=== PATIENT | male | born 1965 | race Caucasian/White ===

== ENCOUNTER 2020-06-19 20:25 | Inpatient (IN) | payer OTHER ==
[~2020-06-19] VITALS: Ht 182.9 cm; Wt 92.1 kg
[~2020-06-19 20:25] MED LIST: FLUC200T PO; LAMO100T8 PO; LAMO50TA3 PO; LEVE750T41 PO; METO50TA6 PO
--- NOTE | 2020-06-19 20:42 | PHYS DOC ---
Past Medical History Past Medical History: Hypertension, Seizure Past Surgical History: No Surgical History Smoking Status: Never Smoker Alcohol Use: None General Adult HPI: HPI: Patient is a 54 year old male who presents with by EMS from [facility] where he is inpatient for suicidal ideation. Patient currently denies suicidal ideation. Patient had a witnessed seizure while he was sitting in a chair, that lasted approximately a minute. He is supposed be taking metoprolol and Lamict al. Patient is postictal but he is sleepy, easily arousable and oriented x4. Patient denies headache, dizziness, vision changes, numbness or tingling, focal weakness, chest pain, shortness of breath, abdominal pain, nausea, vomiting, diarrhea, fever. He has a history of hypertension and seizures per the patient. And upon arrival is in A. fib with RVR and this is new for him as the patient denies any past heart history or A. fib. He denies being on any blood thinners. Review of Systems: Review of Systems: Constitutional: Denies fever or chills. [] Eyes: Denies change in visual acuity. [] HENT: Denies nasal congestion or sore throat. [] Respiratory: Denies cough or shortness of breath. [] Cardiovascular: Denies chest pain or edema. Irregular rhythm.[] GI: Denies abdominal pain, nausea, vomiting, bloody stools or diarrhea. [] : Denies dysuria. [] Musculoskeletal: Denies back pain or joint pain. [] Integument: Denies rash. [] Neurologic: Denies headache, focal weakness or sensory changes. Seizure[] Endocrine: Denies polyuria or polydipsia. [] Lymphatic: Denies swollen glands. [] Psychiatric: Denies depression or anxiety. [] Heart Score: Risk Factors: Risk Factors: DM, Current or recent (<one month) smoker, HTN, HLP, family history of CAD, obesity. Risk Scores: Score 0 - 3: 2.5% MACE over next 6 weeks - Discharge Home Score 4 - 6: 20.3% MACE over next 6 weeks - Admit for Clinical Observation Score 7 - 10: 72.7% MACE over next 6 weeks - Early Invasive Strategies Allergies: Allergies: Allergies Coded Allergies Type Severity Reaction Last Updated Verified Penicillins Allergy Unknown Hives 10/20/19 Yes Physical Exam: PE: Constitutional: Well developed, well nourished, no acute distress, non-toxic appearance. [] HENT: Normocephalic, atraumatic, bilateral external ears normal, oropharynx moist, no oral exudates, nose normal. [] Eyes: PERRLA, EOMI, conjunctiva normal, no discharge. [] Neck: Normal range of motion, no tenderness, supple, no stridor. [] Cardiovascular:Heart rate irregular afib with rvr rhythm, no murmur [] Lungs & Thorax: Bilateral breath sounds clear to auscultation [] Abdomen: Bowel sounds normal, soft, no tenderness, no masses, no pulsatile masses. [] Skin: Warm, dry, no erythema, no rash. [] Back: No tenderness, no CVA tenderness. [] Extremities: No tenderness, no cyanosis, no clubbing, ROM intact, no edema. [] Neurologic: Alert and oriented X 3, normal motor function, normal sensory function, no focal deficits noted. [] Psychologic: Affect normal, judgement normal, mood normal. Sleepy, postictal [] EKG: EK and read by Dr Liu as Afib with RVR[] Radiology/Procedures: Radiology/Procedures: [] Impression: [facility] [address] [facility] [place] [place] [id number] IMAGING REPORT Signed PATIENT: SAMY VALENTE ACCOUNT: [id number] : 1965 LOCATION: ER AGE: 54 SEX: M EXAM STATUS: PRE ER ORD. PHYSICIAN: RIRI POWERS APRN REASON: seizure ER#[id number] PROCEDURE: PORTABLE CHEST 1V Exam: Chest one view INDICATION: Seizure TECHNIQUE: Frontal view of the chest Comparisons: None FINDINGS: The cardiomediastinal silhouette and pulmonary vessels are within normal limits. Patchy airspace disease at the left lung base. No pleural effusion. IMPRESSION: Patchy airspace disease at the left lung base, may be atelectasis and/or developing consolidative process. Electronically signed by: Kevin Araiza MD (06/19/2020 9:15 PM) [id number] DICTATED and SIGNED BY: KEVIN ARAIZA MD DATE: 06/19/202114 Course & Med Decision Making: Course & Med Decision Making Pertinent Labs and Imaging studies reviewed. (See chart for details) See HPI. Speaks in full complete sentences. Lungs are clear to auscultation all lobes. No extremity edema. Skin pink warm and dry. Cardizem 25 mg IV push and Cardizem drip is ordered. Patient states last seizure was 1 month ago. Lidia rojas usually goes to the ID for medical care. Patient admitted tot [facility] by Dr Stiles. Heart rate is now running 86-96. Patient remained stable. His magnesium is 2.6. Patient's creatinine is bumped at 1.7. I have spoken to Dr Liu concerning this patient, findings and care plan. When looking back in the patients chart he was here for Afib RVR in September 2019. Patient is a poor historian. 5: Prior to the patient going upstairs patient began to have a seizure that last approximately 1 minute. Patient is given 1mg Ativan and 1G Keppra. [] Moiz Disclaimer: Moiz Disclaimer: This electronic medical record was generated, in whole or in part, using a voice recognition dictation system. Departure Departure Impression: Primary Impression: Atrial fibrillation with rapid ventricular response Additional Impression: Seizure Disposition: ADMITTED INPATIENT Admitting Physician: YOLA Condition: STABLE Referrals: UNKNOWN PCP NAME (PCP) Justicifation of Admission Dx: Justifications for Admission: Justification of Admission Dx: Yes (afib rvr) RIRI POWERS APRN Jun 19, 2020 20:42
[2020-06-19 20:43] LABS: BASO # 0.1 x10^3/uL (0.0-0.2); BASO % 1 % (0-3); EOS # 0.1 x10^3/uL (0.0-0.7); EOS % 2 % (0-3); HEMATOCRIT 46.3 % (39.0-53.0); HEMOGLOBIN 15.7 g/dL (13.0-17.5); LYMPH # 3.4 x10^3/uL (1.0-4.8); LYMPH % 42 % (24-48); MEAN CORPUSCULAR HEMOGLOBIN 30 pg (25-35); MEAN CORPUSCULAR HGB CONC 34 g/dL (31-37); MEAN CORPUSCULAR VOLUME 88 fL (79-100); MONO # 0.9 x10^3/uL (0.0-1.1); MONO % 11 % (0-9); NEUT # 3.7 x10^3/uL (1.8-7.7); NEUT % 45 % (31-73); PLATELET COUNT 219 x10^3/uL (140-400); RED BLOOD COUNT 5.24 x10^6/uL (4.30-5.70); RED CELL DISTRIBUTION WIDTH 13.7 % (11.5-14.5); WHITE BLOOD COUNT 8.1 x10^3/uL (4.0-11.0)
[2020-06-19] MEDS ORDERED: dilTIAZem IV PUSH 25 MG/5 ML VIAL IVP ONE (20:45)
[2020-06-19] MEDS ORDERED: DILTIAZEM HCL 125 MG in IV NORMAL SALINE 100ML 100 ML IV ONE (20:45)
[2020-06-19 20:46] LABS: BILIRUBIN,URINE NEGATIVE (NEG); CLARITY,URINE CLEAR; COLOR,URINE YELLOW; NITRITE,URINE NEGATIVE (NEG); PROTEIN,URINE 100 mg/dL (NEG-TRACE); UROBILINOGEN,URINE 0.2 mg/dL (0.2 mg/dL)
[2020-06-19 20:50] LABS: AMORPHOUS SEDIMENT,UR PRESENT /HPF; BACTERIA,URINE 0 /HPF (0-FEW); HYALINE CASTS, URINE FEW /HPF
[2020-06-19 20:52] LABS: PROTHROMBIN TIME PATIENT 12.7 SEC (11.7-14.0)
[2020-06-19 20:52] LABS: BARBITURATES NEG (NEG); BENZODIAZEPINES NEG (NEG); CANNABINOIDS NEG (NEG); COCAINE NEG (NEG); METHADONE NEG (NEG); OPIATES NEG (NEG); PHENCYCLIDINE NEG (NEG)
[2020-06-19 20:55] LABS: CALCIUM 9.2 mg/dL (8.5-10.1); CREATININE 1.7 mg/dL (0.7-1.3); GFR 42.4; POTASSIUM 3.6 mmol/L (3.5-5.1)
[2020-06-19 20:58] LABS: AMPHETAMINE/METHAMPHETAMINE NEG (NEG)
[2020-06-19 20:58] LABS: ALBUMIN 4.2 g/dL (3.4-5.0); ALBUMIN/GLOBULIN RATIO 1.1 (1.0-1.7); MAGNESIUM 2.6 mg/dL (1.8-2.4); TOTAL BILIRUBIN 0.4 mg/dL (0.2-1.0)
[2020-06-19] MEDS ORDERED: ASPIRIN 325 MG TABLET PO ONE (21:00)
--- NOTE | 2020-06-19 21:18 | RAD ---
Exam: Chest one view INDICATION: Seizure TECHNIQUE: Frontal view of the chest Comparisons: None FINDINGS: The cardiomediastinal silhouette and pulmonary vessels are within normal limits. Patchy airspace disease at the left lung base. No pleural effusion. IMPRESSION: Patchy airspace disease at the left lung base, may be atelectasis and/or developing consolidative process. Electronically signed by: Kevin Gunderson MD (06/19/2020 9:15 PM) [id number]
[2020-06-19] MEDS ORDERED: AZITHRMYCN 500MG IVPB FOR OMNI 250 ML IV ONE (22:00)
[2020-06-19] MEDS ORDERED: cefTRIAXone IV Push 1 GM VIAL. IVP ONE (22:00)
[2020-06-19] MEDS ORDERED: levETIRAcetam 1,000 MG in IV DEXTROSE 5% 100ML 100 ML IV ONE (23:00)
[2020-06-19 23:42] VITALS: BP 123/67
[2020-06-20] VITALS (9 sets, daily range): BP systolic 112–147; BP diastolic 64–90
[2020-06-20] MEDS ORDERED: DOCUSATE SODIUM 100 MG CAPSULE. PO PRN (08:30)
[2020-06-20] MEDS ORDERED: ALBUTEROL SULFATE 2.5 MG/3 ML NEBU. NEB PRN (08:30)
[2020-06-20] MEDS ORDERED: ONDANSETRON PF 4 MG/2 ML VIAL. IV PRN (08:30)
[2020-06-20] MEDS ORDERED: ACETAMINOPHEN 325 MG TABLET. PO PRN (08:30)
[2020-06-20] MEDS ORDERED: ACETAMINOPHEN 650 MG SUPP.RECT. PR PRN (08:30)
[2020-06-20] MEDS ORDERED: LORazepam 0.5 MG TABLET PO PRN (08:30)
[2020-06-20] MEDS ORDERED: guaiFENesin ORAL 200 MG/10 ML LIQUID. PO PRN (08:30)
[2020-06-20] MEDS ORDERED: ZOLPIDEM 5 MG TABLET. PO PRN (08:30)
[2020-06-20] MEDS: AZITHROMYCIN 250 MG TABLET. PO SCH (09:13)
[2020-06-20] MEDS: ENOXAPARIN 40 MG/0.4 ML SYRINGE. SQ SCH (09:14)
--- NOTE | 2020-06-20 09:24 | RAD ---
EXAM: PA and Lateral Views of the Chest DATE: 06/20/2020 8:25 AM INDICATION: pneumonia follow up COMPARISON: 06/19/2020 FINDINGS: The heart is not enlarged. Mediastinal and hilar contours are normal. Improved aeration lungs bilaterally without significant associated consolidation. No pleural effusion or pneumothorax. IMPRESSION: Improved aeration lungs bilaterally without significant associated consolidation Electronically signed by: Gary Stallings MD (06/20/2020 9:21 AM) [id number]
--- NOTE | 2020-06-20 10:11 | PDOC1 ---
History and Physical Date of Admission Date of Admission 06/20/2020 Identification/Chief Complaint Chief Complaint My heart is beating fast Source Source: Chart review, Patient History of Present Illness History of Present Illness Patient is a 54-year-old gentleman with past medical history of seizure disorder and essential hypertension who looks certainly older than the stated age who was in the usual state of health until he was brought by emergency medical services after suffering for a witnessed seizure while he was sitting in a chair. Patient apparently does not remember the incident reports of 1 minute approxim ately of postictal. Is recorded. Patient was found to have atrial fibrillation with rapid ventricular response upon evaluation in the emergency department reason why we were asked to admit the patient. The patient denied any chest pain no palpitations at the time of the event no aura type of symptoms no flashing lights or weird smells were reported prior to the event. He did not have loss of sphincter control. Patient was apparently at [facility] for suicidal ideation which at the moment he does not endorse history of. At the time of my visit the patient denies any headache no generalized malaise no history of cold-like symptoms and he adamantly says that he does not have COVID-19. He denies any exposure to cope with 19 patients denies fever cough sputum production no pleurisy was reported no nausea vomiting or diarrhea no abdominal pain was reported. Patient denies urinary symptoms. Plan of care has been explained detail and all of his concerns were addressed to the best of my abilities Past Medical History Cardiovascular: AFIB, HTN CENTRAL NERVOUS SYSTEM: Seizure Past Surgical History Past Surgical History: Other Family History Family History: No Significant, Other Social History Smoke: No ALCOHOL: none Drugs: None Current Problem List Problem List Problems Medical Problems: (1) Atrial fibrillation with rapid ventricular response Status: Acute (2) Seizure Status: Acute Current Medications Current Medications Current Medications Medications (Trade) Dose Ordered Sig/Indigo Start Time Stop Time Status Last Admin Dose Admin Acetaminophen (Tylenol Supp) 650 mg PRN Q4HRS PRN 06/20/20 08:30 Acetaminophen (Tylenol) 650 mg PRN Q4HRS PRN 06/20/20 08:30 Albuterol Sulfate (Ventolin Neb Soln) 2.5 mg PRN Q4HRS PRN 06/20/20 08:30 Aspirin (Jeff Aspirin) 325 mg 1X ONCE 06/19/20 21:00 06/19/20 21:01 DC 06/19/20 20:50 325 MG Azithromycin (Zithromax) 500 mg DAILY 06/20/20 09:00 06/21/20 09:01 06/20/20 09:13 500 MG Ceftriaxone Sodium (Rocephin) 1 gm Q24H 06/20/20 22:00 Diltiazem HCl (Cardizem 24hr Cd) 240 mg DAILY 06/21/20 09:00 UNV Diltiazem HCl (Cardizem Iv Push) 25 mg 1X ONCE 06/19/20 20:45 06/19/20 20:46 DC 06/19/20 20:51 25 MG Diltiazem HCl 125 mg/Sodium Chloride 125 ml @ 5 mls/hr 1X ONCE 06/19/20 20:45 06/20/20 21:44 06/19/20 20:52 5 MLS/HR Docusate Sodium (Colace) 100 mg PRN BID PRN 06/20/20 08:30 Enoxaparin Sodium (Lovenox 40mg Syringe) 40 mg Q24H 06/20/20 09:00 06/20/20 09:14 40 MG Guaifenesin (Robitussin) 200 mg PRN Q4HRS PRN 06/20/20 08:30 Levetiracetam 1000 mg/Dextrose 110 ml @ 440 mls/hr 1X ONCE 06/19/20 23:00 06/19/20 23:14 DC 06/19/20 23:33 440 MLS/HR Lorazepam (Ativan Inj) 1 mg PRN Q4HRS PRN 06/19/20 22:45 Lorazepam (Ativan) 0.5 mg PRN Q4HRS PRN 06/20/20 08:30 Ondansetron HCl (Zofran) 4 mg PRN Q4HRS PRN 06/20/20 08:30 Zolpidem Tartrate (Ambien) 5 mg PRN QHS PRN 06/20/20 08:30 Allergies Allergies Allergies Coded Allergies Type Severity Reaction Last Updated Verified Penicillins Allergy Intermediate Hives 06/19/20 Yes ROS Review of System CONSTITUTIONAL: No fever or chills EYES: No recent changes SKIN: No rash or itching CARDIOVASCULAR: No chest pain, syncope, palpitations, or edema RESPIRATORY: No SOB or cough GASTROINTESTINAL: No nausea, vomiting or abdominal pain NEUROLOGICAL: No headaches or weakness ENDOCRINE: No cold or heat intolerance GENITOURINARY: No urgency or frequency of urination MUSCULOSKELETAL: No back pain or joint pain LYMPHATICS: No enlarged lymph nodes PSYCHIATRIC: No anxiety or depression Physical Exam Physical Exam GEN.: No apparent distress. Alert and oriented. HEENT: Head is normocephalic, atraumatic NECK: Supple. LUNGS: Clear to auscultation. HEART: Irregular heart rate and rhythm, S1, S2 present. Peripheral pulses intact ABDOMEN: Soft, nontender. Positive bowel sounds. EXTREMITIES: Without any cyanosis. NEUROLOGIC: Normal speech, normal tone PSYCHIATRIC: Normal affect, normal mood. SKIN: No ulcerations Vitals Vitals Vital Signs Date Time Temp Pulse Resp B/P (MAP) Pulse Ox O2 Delivery O2 Flow Rate FiO2 06/20/20 07:00 98.7 99 22 132/64 (86) 97 Room Air 98.7 Labs Labs Laboratory Tests Test 06/19/20 20:32 06/19/20 20:35 06/20/20 02:00 White Blood Count 8.1 x10^3/uL (4.0-11.0) Red Blood Count 5.24 x10^6/uL (4.30-5.70) Hemoglobin 15.7 g/dL (13.0-17.5) Hematocrit 46.3 % (39.0-53.0) Mean Corpuscular Volume 88 fL (79-100) Mean Corpuscular Hemoglobin 30 pg (25-35) Mean Corpuscular Hemoglobin Concent 34 g/dL (31-37) Red Cell Distribution Width 13.7 % (11.5-14.5) Platelet Count 219 x10^3/uL (140-400) Neutrophils (%) (Auto) 45 % (31-73) Lymphocytes (%) (Auto) 42 % (24-48) Monocytes (%) (Auto) 11 % (0-9) Eosinophils (%) (Auto) 2 % (0-3) Basophils (%) (Auto) 1 % (0-3) Neutrophils # (Auto) 3.7 x10^3/uL (1.8-7.7) Lymphocytes # (Auto) 3.4 x10^3/uL (1.0-4.8) Monocytes # (Auto) 0.9 x10^3/uL (0.0-1.1) Eosinophils # (Auto) 0.1 x10^3/uL (0.0-0.7) Basophils # (Auto) 0.1 x10^3/uL (0.0-0.2) Prothrombin Time 12.7 SEC (11.7-14.0) Prothromb Time International Ratio 1.0 (0.8-1.1) Sodium Level 138 mmol/L (136-145) Potassium Level 3.6 mmol/L (3.5-5.1) Chloride Level 101 mmol/L (98-107) Carbon Dioxide Level 16 mmol/L (21-32) Anion Gap 21 (6-14) Blood Urea Nitrogen 16 mg/dL (8-26) Creatinine 1.7 mg/dL (0.7-1.3) Estimated GFR (Cockcroft-Gault) 42.4 BUN/Creatinine Ratio 9 (6-20) Glucose Level 171 mg/dL (70-99) Calcium Level 9.2 mg/dL (8.5-10.1) Magnesium Level 2.6 mg/dL (1.8-2.4) Total Bilirubin 0.4 mg/dL (0.2-1.0) Aspartate Amino Transf (AST/SGOT) 16 U/L (15-37) Alanine Aminotransferase (ALT/SGPT) 27 U/L (16-63) Alkaline Phosphatase 65 U/L (46-116) Troponin I Quantitative < 0.017 ng/mL (0.000-0.055) 0.161 ng/mL (0.000-0.055) WR-Qul-I-Type Natriuretic Peptide 90 pg/mL (0-124) Total Protein 8.0 g/dL (6.4-8.2) Albumin 4.2 g/dL (3.4-5.0) Albumin/Globulin Ratio 1.1 (1.0-1.7) Lipase 92 U/L (73-393) Urine Collection Type Unknown Urine Color Yellow Urine Clarity Clear Urine pH 5.0 (<5.0-8.0) Urine Specific Brandt 1.015 (1.000-1.030) Urine Protein 100 mg/dL (NEG-TRACE) Urine Glucose (UA) Negative mg/dL (NEG) Urine Ketones (Stick) Negative mg/dL (NEG) Urine Blood Small (NEG) Urine Nitrite Negative (NEG) Urine Bilirubin Negative (NEG) Urine Urobilinogen Dipstick 0.2 mg/dL (0.2 mg/dL) Urine Leukocyte Esterase Negative (NEG) Urine RBC 1-2 /HPF (0-2) Urine WBC 1-4 /HPF (0-4) Urine Amorphous Sediment Present /HPF Urine Bacteria 0 /HPF (0-FEW) Urine Hyaline Casts Few /HPF Urine Mucus Mod /LPF Urine Opiates Screen Neg (NEG) Urine Methadone Screen Neg (NEG) Urine Barbiturates Neg (NEG) Urine Phencyclidine Screen Neg (NEG) Urine Amphetamine/Methamphetamine Neg (NEG) Urine Benzodiazepines Screen Neg (NEG) Urine Cocaine Screen Neg (NEG) Urine Cannabinoids Screen Neg (NEG) Urine Ethyl Alcohol Neg (NEG) Laboratory Tests Test 06/19/20 20:32 06/19/20 20:35 06/20/20 02:00 White Blood Count 8.1 x10^3/uL (4.0-11.0) Red Blood Count 5.24 x10^6/uL (4.30-5.70) Hemoglobin 15.7 g/dL (13.0-17.5) Hematocrit 46.3 % (39.0-53.0) Mean Corpuscular Volume 88 fL (79-100) Mean Corpuscular Hemoglobin 30 pg (25-35) Mean Corpuscular Hemoglobin Concent 34 g/dL (31-37) Red Cell Distribution Width 13.7 % (11.5-14.5) Platelet Count 219 x10^3/uL (140-400) Neutrophils (%) (Auto) 45 % (31-73) Lymphocytes (%) (Auto) 42 % (24-48) Monocytes (%) (Auto) 11 % (0-9) Eosinophils (%) (Auto) 2 % (0-3) Basophils (%) (Auto) 1 % (0-3) Neutrophils # (Auto) 3.7 x10^3/uL (1.8-7.7) Lymphocytes # (Auto) 3.4 x10^3/uL (1.0-4.8) Monocytes # (Auto) 0.9 x10^3/uL (0.0-1.1) Eosinophils # (Auto) 0.1 x10^3/uL (0.0-0.7) Basophils # (Auto) 0.1 x10^3/uL (0.0-0.2) Prothrombin Time 12.7 SEC (11.7-14.0) Prothromb Time International Ratio 1.0 (0.8-1.1) Sodium Level 138 mmol/L (136-145) Potassium Level 3.6 mmol/L (3.5-5.1) Chloride Level 101 mmol/L (98-107) Carbon Dioxide Level 16 mmol/L (21-32) Anion Gap 21 (6-14) Blood Urea Nitrogen 16 mg/dL (8-26) Creatinine 1.7 mg/dL (0.7-1.3) Estimated GFR (Cockcroft-Gault) 42.4 BUN/Creatinine Ratio 9 (6-20) Glucose Level 171 mg/dL (70-99) Calcium Level 9.2 mg/dL (8.5-10.1) Magnesium Level 2.6 mg/dL (1.8-2.4) Total Bilirubin 0.4 mg/dL (0.2-1.0) Aspartate Amino Transf (AST/SGOT) 16 U/L (15-37) Alanine Aminotransferase (ALT/SGPT) 27 U/L (16-63) Alkaline Phosphatase 65 U/L (46-116) Troponin I Quantitative < 0.017 ng/mL (0.000-0.055) 0.161 ng/mL (0.000-0.055) CA-Tdb-Z-Type Natriuretic Peptide 90 pg/mL (0-124) Total Protein 8.0 g/dL (6.4-8.2) Albumin 4.2 g/dL (3.4-5.0) Albumin/Globulin Ratio 1.1 (1.0-1.7) Lipase 92 U/L (73-393) Urine Collection Type Unknown Urine Color Yellow Urine Clarity Clear Urine pH 5.0 (<5.0-8.0) Urine Specific Brandt 1.015 (1.000-1.030) Urine Protein 100 mg/dL (NEG-TRACE) Urine Glucose (UA) Negative mg/dL (NEG) Urine Ketones (Stick) Negative mg/dL (NEG) Urine Blood Small (NEG) Urine Nitrite Negative (NEG) Urine Bilirubin Negative (NEG) Urine Urobilinogen Dipstick 0.2 mg/dL (0.2 mg/dL) Urine Leukocyte Esterase Negative (NEG) Urine RBC 1-2 /HPF (0-2) Urine WBC 1-4 /HPF (0-4) Urine Amorphous Sediment Present /HPF Urine Bacteria 0 /HPF (0-FEW) Urine Hyaline Casts Few /HPF Urine Mucus Mod /LPF Urine Opiates Screen Neg (NEG) Urine Methadone Screen Neg (NEG) Urine Barbiturates Neg (NEG) Urine Phencyclidine Screen Neg (NEG) Urine Amphetamine/Methamphetamine Neg (NEG) Urine Benzodiazepines Screen Neg (NEG) Urine Cocaine Screen Neg (NEG) Urine Cannabinoids Screen Neg (NEG) Urine Ethyl Alcohol Neg (NEG) VTE Prophylaxis Ordered VTE Prophylaxis Devices: No VTE Pharmacological Prophylaxi: Yes Assessment/Plan Assessment/Plan Atrial fibrillation with rapid ventricular response Community-acquired pneumonia History of essential hypertension History of seizure disorder Mildly elevated troponin most likely secondary to demand ischemia non-STEMI type II secondary to rapid ventricular response Chronic kidney disease stage III a Hyperglycemia of unknown clinical significance Plan We will transition to Cardizem p.o. Given his risk factors patient probably will benefit from anticoagulation We will follow urinary output Check hemoglobin A1c Trend troponin Further recommendations based on the clinical course We will repeat a PA and lateral chest x-ray Continue Rocephin and Zithromax for community-acquired pneumonia DVT prophylaxis with Lovenox Justifications for Admission Other Justification GERARD BARRIOS MD Jun 20, 2020 10:11
[2020-06-20] MEDS ORDERED: LEVE10007 PO (10:53)
[2020-06-20] MEDS ORDERED: TAMS0.4C97 PO (10:53)
--- NOTE | 2020-06-20 13:31 | PDOC2 ---
NEUROLOGY CONSULT Date of Service DOS: DATE: 06/20/20 TIME: 13:22 Referring Physician Referring Physician: Dr. Trevino [facility] Source Source: Chart review, Patient History of Present Illness History of Present Illness The patient is a 54-year-old right-handed male with history of seizures for several years who was staying at [facility] and had 1 of his seizures. Last seizure before that was 5 months ago. He was found to have atrial fibrillation with rapid ventricular response. He is feeling fine now. There is no history of head injury or stroke. Interestingly, he was here in September from the [facility] with a seizure and again had atrial fibrillation. CT head and EEG were negative. Past Medical History Cardiovascular: AFIB, HTN CENTRAL NERVOUS SYSTEM: Seizure Musculoskeletal: low back pain Past Surgical History Past Surgical History: Other (Left shoulder dislocation due to seizure, right hip fracture) Family History Family History: Cancer Social History Social History , unemployed, no alcohol, tobacco, street drugs Current Medications Current Medications Current Medications Diltiazem HCl (Cardizem Iv Push) 25 mg 1X ONCE IVP Last administered on 06/19/20at 20:51; Start 06/19/20 at 20:45; Stop 06/19/20 at 20:46; Status DC Diltiazem HCl 125 mg/Sodium Chloride 125 ml @ 5 mls/hr 1X ONCE IV Last administered on 06/19/20at 20:52; Start 06/19/20 at 20:45; Stop 06/20/20 at 21:44 Aspirin (Jeff Aspirin) 325 mg 1X ONCE PO Last administered on 06/19/20at 20:50; Start 06/19/20 at 21:00; Stop 06/19/20 at 21:01; Status DC Azithromycin 250 ml @ 250 mls/hr 1X ONCE IV Last administered on 06/19/20at 22:00; Start 06/19/20 at 22:00; Stop 06/19/20 at 22:59; Status DC Ceftriaxone Sodium (Rocephin) 1 gm 1X ONCE IVP Last administered on 06/19/20at 22:02; Start 06/19/20 at 22:00; Stop 06/19/20 at 22:01; Status DC Lorazepam (Ativan Inj) 2 mg 1X ONCE IVP Last administered on 06/19/20at 22:15; Start 06/19/20 at 22:15; Stop 06/19/20 at 22:37; Status DC Levetiracetam 1000 mg/Dextrose 110 ml @ 440 mls/hr 1X ONCE IV Last administered on 06/19/20at 23:33; Start 06/19/20 at 23:00; Stop 06/19/20 at 23:14; Status DC Lorazepam (Ativan Inj) 1 mg 1X ONCE IVP ; Start 06/19/20 at 23:00; Stop 06/19/20 at 23:01; Status DC Lorazepam (Ativan Inj) 1 mg PRN Q4HRS PRN IVP SEIZURE; Start 06/19/20 at 22:45 Ondansetron HCl (Zofran) 4 mg PRN Q4HRS PRN IV NAUSEA/VOMITING; Start 06/20/20 at 08:30 Zolpidem Tartrate (Ambien) 5 mg PRN QHS PRN PO INSOMNIA; Start 06/20/20 at 08:30 Acetaminophen (Tylenol) 650 mg PRN Q4HRS PRN PO TEMP OVER 100.4F OR MILD PAIN; Start 06/20/20 at 08:30 Acetaminophen (Tylenol Supp) 650 mg PRN Q4HRS PRN [place] TEMP OVER 100.4F OR MILD PAIN; Start 06/20/20 at 08:30 Docusate Sodium (Colace) 100 mg PRN BID PRN PO HARD STOOLS; Start 06/20/20 at 08:30 Albuterol Sulfate (Ventolin Neb Soln) 2.5 mg PRN Q4HRS PRN NEB SHORTNESS OF BREATH; Start 06/20/20 at 08:30 Guaifenesin (Robitussin) 200 mg PRN Q4HRS PRN PO COUGH; Start 06/20/20 at 08:30 Lorazepam (Ativan) 0.5 mg PRN Q4HRS PRN PO ANXIETY / AGITATION; Start 06/20/20 at 08:30 Enoxaparin Sodium (Lovenox 40mg Syringe) 40 mg Q24H SQ Last administered on 06/20/20at 09:14; Start 06/20/20 at 09:00 Ceftriaxone Sodium (Rocephin) 1 gm Q24H IVP ; Start 06/20/20 at 22:00 Azithromycin (Zithromax) 500 mg DAILY PO Last administered on 06/20/20at 09:13; Start 06/20/20 at 09:00; Stop 06/21/20 at 09:01 Diltiazem HCl (Cardizem 24hr Cd) 240 mg DAILY PO Last administered on 06/20/20at 10:31; Start 06/20/20 at 11:00 Active Scripts Active Reported Flomax (Tamsulosin Hcl) 0.4 Mg Cap.er.24h 1 Cap PO DAILY Levetiracetam 1,000 Mg Tablet 1 Tab PO BID 30 Days Metoprolol Tartrate 50 Mg Tablet 1 Tab PO BID 30 Days Lamotrigine 50 Mg Tab.er.24 0.5 Tab PO BID 30 Days Allergies Allergies: Coded Allergies: Penicillins (Verified Allergy, Intermediate, Hives, 06/19/20) patient states pcn allergy upon positive skin prick test as a child ROS Review of System Negative for fever, chills, weight loss, shortness of breath, chest pain, indigestion, hematochezia, melena, and dysuria. Full 14-point review of systems is negative. Physical Exam Physical Examination General: Well-developed, well-nourished white male in no acute distress HEENT: Normocephalic andatraumatic. Temporal arteriespulsatile and nontender. Neck: Supple without bruit, no meningismus Musculoskeletal: Stability:see neurologic. Gait exam:see neurologic. Tone:see neurologic.Strength:see neurologic. Neurological: Mental Status:intact, orientation, memory, attention span/concentration, language, fund of knowledge normal. Cranial Nerves:Pupils equal and reactive to light, extraocular movements areintact, visual kent are full to confrontat ion. Facial sensation is normal. There is no facial asymmetry. Vestibulo-ocular reflex is intact. Palate elevates and tongue protrudes in midline. All other cranial related problems are negative except as mentioned before.Reflexes:2+ and symmetric with flexor plantar responses. Motor:5/5 strength with normal tone and bulk. Coordination:Finger-nose finger and pgwc-[id number] testing are normal. Rapid alternating movements and fine finger movements are intact. Gait:Normal, including tandem. Sensory:Normal pinprick, vibration, light touch, proprioception. Vitals VITALS Vital Signs Date Time Temp Pulse Resp B/P (MAP) Pulse Ox O2 Delivery O2 Flow Rate FiO2 06/20/20 11:00 98.1 75 21 122/78 (93) 95 Room Air 98.1 Labs Labs Laboratory Tests Test 06/19/20 20:32 06/19/20 20:35 06/20/20 02:00 White Blood Count 8.1 x10^3/uL (4.0-11.0) Red Blood Count 5.24 x10^6/uL (4.30-5.70) Hemoglobin 15.7 g/dL (13.0-17.5) Hematocrit 46.3 % (39.0-53.0) Mean Corpuscular Volume 88 fL (79-100) Mean Corpuscular Hemoglobin 30 pg (25-35) Mean Corpuscular Hemoglobin Concent 34 g/dL (31-37) Red Cell Distribution Width 13.7 % (11.5-14.5) Platelet Count 219 x10^3/uL (140-400) Neutrophils (%) (Auto) 45 % (31-73) Lymphocytes (%) (Auto) 42 % (24-48) Monocytes (%) (Auto) 11 % (0-9) Eosinophils (%) (Auto) 2 % (0-3) Basophils (%) (Auto) 1 % (0-3) Neutrophils # (Auto) 3.7 x10^3/uL (1.8-7.7) Lymphocytes # (Auto) 3.4 x10^3/uL (1.0-4.8) Monocytes # (Auto) 0.9 x10^3/uL (0.0-1.1) Eosinophils # (Auto) 0.1 x10^3/uL (0.0-0.7) Basophils # (Auto) 0.1 x10^3/uL (0.0-0.2) Prothrombin Time 12.7 SEC (11.7-14.0) Prothromb Time International Ratio 1.0 (0.8-1.1) Sodium Level 138 mmol/L (136-145) Potassium Level 3.6 mmol/L (3.5-5.1) Chloride Level 101 mmol/L (98-107) Carbon Dioxide Level 16 mmol/L (21-32) Anion Gap 21 (6-14) Blood Urea Nitrogen 16 mg/dL (8-26) Creatinine 1.7 mg/dL (0.7-1.3) Estimated GFR (Cockcroft-Gault) 42.4 BUN/Creatinine Ratio 9 (6-20) Glucose Level 171 mg/dL (70-99) Calcium Level 9.2 mg/dL (8.5-10.1) Magnesium Level 2.6 mg/dL (1.8-2.4) Total Bilirubin 0.4 mg/dL (0.2-1.0) Aspartate Amino Transf (AST/SGOT) 16 U/L (15-37) Alanine Aminotransferase (ALT/SGPT) 27 U/L (16-63) Alkaline Phosphatase 65 U/L (46-116) Troponin I Quantitative < 0.017 ng/mL (0.000-0.055) 0.161 ng/mL (0.000-0.055) FN-[id number]-Type Natriuretic Peptide 90 pg/mL (0-124) Total Protein 8.0 g/dL (6.4-8.2) Albumin 4.2 g/dL (3.4-5.0) Albumin/Globulin Ratio 1.1 (1.0-1.7) Lipase 92 U/L (73-393) Urine Collection Type Unknown Urine Color Yellow Urine Clarity Clear Urine pH 5.0 (<5.0-8.0) Urine Specific [place] 1.015 (1.000-1.030) Urine Protein 100 mg/dL (NEG-TRACE) Urine Glucose (UA) Negative mg/dL (NEG) Urine Ketones (Stick) Negative mg/dL (NEG) Urine Blood Small (NEG) Urine Nitrite Negative (NEG) Urine Bilirubin Negative (NEG) Urine Urobilinogen Dipstick 0.2 mg/dL (0.2 mg/dL) Urine Leukocyte Esterase Negative (NEG) Urine RBC 1-2 /HPF (0-2) Urine WBC 1-4 /HPF (0-4) Urine Amorphous Sediment Present /HPF Urine Bacteria 0 /HPF (0-FEW) Urine Hyaline Casts Few /HPF Urine Mucus Mod /LPF Urine Opiates Screen Neg (NEG) Urine Methadone Screen Neg (NEG) Urine Barbiturates Neg (NEG) Urine Phencyclidine Screen Neg (NEG) Urine Amphetamine/Methamphetamine Neg (NEG) Urine Benzodiazepines Screen Neg (NEG) Urine Cocaine Screen Neg (NEG) Urine Cannabinoids Screen Neg (NEG) Urine Ethyl Alcohol Neg (NEG) Laboratory Tests Test 06/19/20 20:32 06/19/20 20:35 06/20/20 02:00 White Blood Count 8.1 x10^3/uL (4.0-11.0) Red Blood Count 5.24 x10^6/uL (4.30-5.70) Hemoglobin 15.7 g/dL (13.0-17.5) Hematocrit 46.3 % (39.0-53.0) Mean Corpuscular Volume 88 fL (79-100) Mean Corpuscular Hemoglobin 30 pg (25-35) Mean Corpuscular Hemoglobin Concent 34 g/dL (31-37) Red Cell Distribution Width 13.7 % (11.5-14.5) Platelet Count 219 x10^3/uL (140-400) Neutrophils (%) (Auto) 45 % (31-73) Lymphocytes (%) (Auto) 42 % (24-48) Monocytes (%) (Auto) 11 % (0-9) Eosinophils (%) (Auto) 2 % (0-3) Basophils (%) (Auto) 1 % (0-3) Neutrophils # (Auto) 3.7 x10^3/uL (1.8-7.7) Lymphocytes # (Auto) 3.4 x10^3/uL (1.0-4.8) Monocytes # (Auto) 0.9 x10^3/uL (0.0-1.1) Eosinophils # (Auto) 0.1 x10^3/uL (0.0-0.7) Basophils # (Auto) 0.1 x10^3/uL (0.0-0.2) Prothrombin Time 12.7 SEC (11.7-14.0) Prothromb Time International Ratio 1.0 (0.8-1.1) Sodium Level 138 mmol/L (136-145) Potassium Level 3.6 mmol/L (3.5-5.1) Chloride Level 101 mmol/L (98-107) Carbon Dioxide Level 16 mmol/L (21-32) Anion Gap 21 (6-14) Blood Urea Nitrogen 16 mg/dL (8-26) Creatinine 1.7 mg/dL (0.7-1.3) Estimated GFR (Cockcroft-Gault) 42.4 BUN/Creatinine Ratio 9 (6-20) Glucose Level 171 mg/dL (70-99) Calcium Level 9.2 mg/dL (8.5-10.1) Magnesium Level 2.6 mg/dL (1.8-2.4) Total Bilirubin 0.4 mg/dL (0.2-1.0) Aspartate Amino Transf (AST/SGOT) 16 U/L (15-37) Alanine Aminotransferase (ALT/SGPT) 27 U/L (16-63) Alkaline Phosphatase 65 U/L (46-116) Troponin I Quantitative < 0.017 ng/mL (0.000-0.055) 0.161 ng/mL (0.000-0.055) [id number]-C-Type Natriuretic Peptide 90 pg/mL (0-124) Total Protein 8.0 g/dL (6.4-8.2) Albumin 4.2 g/dL (3.4-5.0) Albumin/Globulin Ratio 1.1 (1.0-1.7) Lipase 92 U/L (73-393) Urine Collection Type Unknown Urine Color Yellow Urine Clarity Clear Urine pH 5.0 (<5.0-8.0) Urine Specific [place] 1.015 (1.000-1.030) Urine Protein 100 mg/dL (NEG-TRACE) Urine Glucose (UA) Negative mg/dL (NEG) Urine Ketones (Stick) Negative mg/dL (NEG) Urine Blood Small (NEG) Urine Nitrite Negative (NEG) Urine Bilirubin Negative (NEG) Urine Urobilinogen Dipstick 0.2 mg/dL (0.2 mg/dL) Urine Leukocyte Esterase Negative (NEG) Urine RBC 1-2 /HPF (0-2) Urine WBC 1-4 /HPF (0-4) Urine Amorphous Sediment Present /HPF Urine Bacteria 0 /HPF (0-FEW) Urine Hyaline Casts Few /HPF Urine Mucus Mod /LPF Urine Opiates Screen Neg (NEG) Urine Methadone Screen Neg (NEG) Urine Barbiturates Neg (NEG) Urine Phencyclidine Screen Neg (NEG) Urine Amphetamine/Methamphetamine Neg (NEG) Urine Benzodiazepines Screen Neg (NEG) Urine Cocaine Screen Neg (NEG) Urine Cannabinoids Screen Neg (NEG) Urine Ethyl Alcohol Neg (NEG) Assessment/Plan Assessment/Plan Impression: Epilepsy, breakthrough seizure, also has atrial fibrillation with rapid ventricular response, hard to know which way the cause and effect arrow goes between the 2. He is fine today. Recommendations: I wrote for his anticonvulsants, he reports a rather low dose of lamotrigine, nurse will check. No need to repeat further neurological studies Discharge when cleared by cardiology. Thank you for letting me help with the patient's care. SAMY BAPTISTE MD Jun 20, 2020 13:31
[2020-06-20] MEDS: TAMSULOSIN 0.4 MG CAP.ER.24H. PO SCH (14:00)
--- NOTE | 2020-06-20 14:47 | PDOC2 ---
CONSULT Date of Consult Date of Consult DATE: 06/20/20 TIME: 14:41 Reason for Consult Reason for Consult: Atrial fibrillation Referring Physician Referring Physician: Dr. Stiles Identification/Chief Complaint Chief Complaint Seizure Source Source: Chart review, Patient History of Present Illness Reason for Visit: The patient is a 54-year-old male who was admitted through the emergency room last evening for a seizure and the possibility of some suicidal ideation. Patient's seizure has resolved and he has been seen by the neurology service who is adjusting his medication. Chest x-ray shows some patchy airspace disease in the left base the patient been treated with antibiotics. From a cardiac viewpoint the patient was in atrial fibrillation with rapid ventricular response. His rate has been treated and is significantly improved. On review of old records the patient has had admissions in September and October of this year for paroxysmal atrial fibrillation apparently treated with metoprolol 50 mg p.o. twice daily. An echocardiogram from 10/20/2019 shows normal LV systolic function and no significant arrhythmias. Additionally today the patient has had initial troponin of 0.017 which is increased to 0.161 but he denies chest pain. Past Medical History Cardiovascular: AFIB, HTN CENTRAL NERVOUS SYSTEM: Seizure Musculoskeletal: low back pain Past Surgical History Past Surgical History: Other (Left shoulder dislocation due to seizure, right hip fracture) Family History Family History: No Significant, Other Social History No ALCOHOL: none Drugs: None Lives: Homeless Current Problem List Problem List Problems Medical Problems: (1) Atrial fibrillation with rapid ventricular response Status: Acute (2) Seizure Status: Acute Current Medications Current Medications Current Medications Diltiazem HCl (Cardizem Iv Push) 25 mg 1X ONCE IVP Last administered on 06/19/20at 20:51; Start 06/19/20 at 20:45; Stop 06/19/20 at 20:46; Status DC Diltiazem HCl 125 mg/Sodium Chloride 125 ml @ 5 mls/hr 1X ONCE IV Last administered on 06/19/20at 20:52; Start 06/19/20 at 20:45; Stop 06/20/20 at 21:44 Aspirin (Jeff Aspirin) 325 mg 1X ONCE PO Last administered on 06/19/20at 20:50; Start 06/19/20 at 21:00; Stop 06/19/20 at 21:01; Status DC Azithromycin 250 ml @ 250 mls/hr 1X ONCE IV Last administered on 06/19/20at 22:00; Start 06/19/20 at 22:00; Stop 06/19/20 at 22:59; Status DC Ceftriaxone Sodium (Rocephin) 1 gm 1X ONCE IVP Last administered on 06/19/20at 22:02; Start 06/19/20 at 22:00; Stop 06/19/20 at 22:01; Status DC Lorazepam (Ativan Inj) 2 mg 1X ONCE IVP Last administered on 06/19/20at 22:15; Start 06/19/20 at 22:15; Stop 06/19/20 at 22:37; Status DC Levetiracetam 1000 mg/Dextrose 110 ml @ 440 mls/hr 1X ONCE IV Last administered on 06/19/20at 23:33; Start 06/19/20 at 23:00; Stop 06/19/20 at 23:14; Status DC Lorazepam (Ativan Inj) 1 mg 1X ONCE IVP ; Start 06/19/20 at 23:00; Stop 06/19/20 at 23:01; Status DC Lorazepam (Ativan Inj) 1 mg PRN Q4HRS PRN IVP SEIZURE; Start 06/19/20 at 22:45 Ondansetron HCl (Zofran) 4 mg PRN Q4HRS PRN IV NAUSEA/VOMITING; Start 06/20/20 at 08:30 Zolpidem Tartrate (Ambien) 5 mg PRN QHS PRN PO INSOMNIA; Start 06/20/20 at 08:30 Acetaminophen (Tylenol) 650 mg PRN Q4HRS PRN PO TEMP OVER 100.4F OR MILD PAIN; Start 06/20/20 at 08:30 Acetaminophen (Tylenol Supp) 650 mg PRN Q4HRS PRN [place] TEMP OVER 100.4F OR MILD PAIN; Start 06/20/20 at 08:30 Docusate Sodium (Colace) 100 mg PRN BID PRN PO HARD STOOLS; Start 06/20/20 at 08:30 Albuterol Sulfate (Ventolin Neb Soln) 2.5 mg PRN Q4HRS PRN NEB SHORTNESS OF BREATH; Start 06/20/20 at 08:30 Guaifenesin (Robitussin) 200 mg PRN Q4HRS PRN PO COUGH; Start 9/27/20 at 08:30 Lorazepam (Ativan) 0.5 mg PRN Q4HRS PRN PO ANXIETY / AGITATION; Start 06/20/20 at 08:30 Enoxaparin Sodium (Lovenox 40mg Syringe) 40 mg Q24H SQ Last administered on 06/20/20at 09:14; Start 06/20/20 at 09:00 Ceftriaxone Sodium (Rocephin) 1 gm Q24H IVP ; Start 06/20/20 at 22:00 Azithromycin (Zithromax) 500 mg DAILY PO Last administered on 06/20/20at 09:13; Start 06/20/20 at 09:00; Stop 06/21/20 at 09:01 Diltiazem HCl (Cardizem 24hr Cd) 240 mg DAILY PO Last administered on 06/20/20at 10:31; Start 06/20/20 at 11:00 Metoprolol Tartrate (Lopressor) 50 mg BID PO ; Start 06/20/20 at 21:00 Tamsulosin HCl (Flomax) 0.4 mg DAILY PO ; Start 06/20/20 at 14:00 Lamotrigine (LaMICtal) 25 mg BID PO ; Start 06/20/20 at 21:00 Levetiracetam (Keppra) 500 mg BID PO ; Start 06/20/20 at 21:00 Active Scripts Active Reported Flomax (Tamsulosin Hcl) 0.4 Mg Cap.er.24h 1 Cap PO DAILY Levetiracetam 1,000 Mg Tablet 1 Tab PO BID 30 Days Metoprolol Tartrate 50 Mg Tablet 1 Tab PO BID 30 Days Lamotrigine 50 Mg Tab.er.24 0.5 Tab PO BID 30 Days Allergies Allergies: Coded Allergies: Penicillins (Verified Allergy, Intermediate, Hives, 06/19/20) patient states pcn allergy upon positive skin prick test as a child ROS General: YES: Fatigue Physical Exam General: No acute distress HEENT: Atraumatic Lungs: Other (Slightly decreased breath sounds) Heart: Other (Irregularly irregular) Abdomen: Normal bowel sounds Vitals VITALS Vital Signs Date Time Temp Pulse Resp B/P (MAP) Pulse Ox O2 Delivery O2 Flow Rate FiO2 06/20/20 11:00 98.1 75 21 122/78 (93) 95 Room Air 98.1 06/20/20 08:00 2.0 Labs Labs Laboratory Tests Test 06/19/20 20:32 06/19/20 20:35 06/20/20 02:00 White Blood Count 8.1 x10^3/uL (4.0-11.0) Red Blood Count 5.24 x10^6/uL (4.30-5.70) Hemoglobin 15.7 g/dL (13.0-17.5) Hematocrit 46.3 % (39.0-53.0) Mean Corpuscular Volume 88 fL (79-100) Mean Corpuscular Hemoglobin 30 pg (25-35) Mean Corpuscular Hemoglobin Concent 34 g/dL (31-37) Red Cell Distribution Width 13.7 % (11.5-14.5) Platelet Count 219 x10^3/uL (140-400) Neutrophils (%) (Auto) 45 % (31-73) Lymphocytes (%) (Auto) 42 % (24-48) Monocytes (%) (Auto) 11 % (0-9) Eosinophils (%) (Auto) 2 % (0-3) Basophils (%) (Auto) 1 % (0-3) Neutrophils # (Auto) 3.7 x10^3/uL (1.8-7.7) Lymphocytes # (Auto) 3.4 x10^3/uL (1.0-4.8) Monocytes # (Auto) 0.9 x10^3/uL (0.0-1.1) Eosinophils # (Auto) 0.1 x10^3/uL (0.0-0.7) Basophils # (Auto) 0.1 x10^3/uL (0.0-0.2) Prothrombin Time 12.7 SEC (11.7-14.0) Prothromb Time International Ratio 1.0 (0.8-1.1) Sodium Level 138 mmol/L (136-145) Potassium Level 3.6 mmol/L (3.5-5.1) Chloride Level 101 mmol/L (98-107) Carbon Dioxide Level 16 mmol/L (21-32) Anion Gap 21 (6-14) Blood Urea Nitrogen 16 mg/dL (8-26) Creatinine 1.7 mg/dL (0.7-1.3) Estimated GFR (Cockcroft-Gault) 42.4 BUN/Creatinine Ratio 9 (6-20) Glucose Level 171 mg/dL (70-99) Calcium Level 9.2 mg/dL (8.5-10.1) Magnesium Level 2.6 mg/dL (1.8-2.4) Total Bilirubin 0.4 mg/dL (0.2-1.0) Aspartate Amino Transf (AST/SGOT) 16 U/L (15-37) Alanine Aminotransferase (ALT/SGPT) 27 U/L (16-63) Alkaline Phosphatase 65 U/L (46-116) Troponin I Quantitative < 0.017 ng/mL (0.000-0.055) 0.161 ng/mL (0.000-0.055) [id number]-Type Natriuretic Peptide 90 pg/mL (0-124) Total Protein 8.0 g/dL (6.4-8.2) Albumin 4.2 g/dL (3.4-5.0) Albumin/Globulin Ratio 1.1 (1.0-1.7) Lipase 92 U/L (73-393) Urine Collection Type Unknown Urine Color Yellow Urine Clarity Clear Urine pH 5.0 (<5.0-8.0) Urine Specific [place] 1.015 (1.000-1.030) Urine Protein 100 mg/dL (NEG-TRACE) Urine Glucose (UA) Negative mg/dL (NEG) Urine Ketones (Stick) Negative mg/dL (NEG) Urine Blood Small (NEG) Urine Nitrite Negative (NEG) Urine Bilirubin Negative (NEG) Urine Urobilinogen Dipstick 0.2 mg/dL (0.2 mg/dL) Urine Leukocyte Esterase Negative (NEG) Urine RBC 1-2 /HPF (0-2) Urine WBC 1-4 /HPF (0-4) Urine Amorphous Sediment Present /HPF Urine Bacteria 0 /HPF (0-FEW) Urine Hyaline Casts Few /HPF Urine Mucus Mod /LPF Urine Opiates Screen Neg (NEG) Urine Methadone Screen Neg (NEG) Urine Barbiturates Neg (NEG) Urine Phencyclidine Screen Neg (NEG) Urine Amphetamine/Methamphetamine Neg (NEG) Urine Benzodiazepines Screen Neg (NEG) Urine Cocaine Screen Neg (NEG) Urine Cannabinoids Screen Neg (NEG) Urine Ethyl Alcohol Neg (NEG) Laboratory Tests Test 06/19/20 20:32 06/19/20 20:35 06/20/20 02:00 White Blood Count 8.1 x10^3/uL (4.0-11.0) Red Blood Count 5.24 x10^6/uL (4.30-5.70) Hemoglobin 15.7 g/dL (13.0-17.5) Hematocrit 46.3 % (39.0-53.0) Mean Corpuscular Volume 88 fL (79-100) Mean Corpuscular Hemoglobin 30 pg (25-35) Mean Corpuscular Hemoglobin Concent 34 g/dL (31-37) Red Cell Distribution Width 13.7 % (11.5-14.5) Platelet Count 219 x10^3/uL (140-400) Neutrophils (%) (Auto) 45 % (31-73) Lymphocytes (%) (Auto) 42 % (24-48) Monocytes (%) (Auto) 11 % (0-9) Eosinophils (%) (Auto) 2 % (0-3) Basophils (%) (Auto) 1 % (0-3) Neutrophils # (Auto) 3.7 x10^3/uL (1.8-7.7) Lymphocytes # (Auto) 3.4 x10^3/uL (1.0-4.8) Monocytes # (Auto) 0.9 x10^3/uL (0.0-1.1) Eosinophils # (Auto) 0.1 x10^3/uL (0.0-0.7) Basophils # (Auto) 0.1 x10^3/uL (0.0-0.2) Prothrombin Time 12.7 SEC (11.7-14.0) Prothromb Time International Ratio 1.0 (0.8-1.1) Sodium Level 138 mmol/L (136-145) Potassium Level 3.6 mmol/L (3.5-5.1) Chloride Level 101 mmol/L (98-107) Carbon Dioxide Level 16 mmol/L (21-32) Anion Gap 21 (6-14) Blood Urea Nitrogen 16 mg/dL (8-26) Creatinine 1.7 mg/dL (0.7-1.3) Estimated GFR (Cockcroft-Gault) 42.4 BUN/Creatinine Ratio 9 (6-20) Glucose Level 171 mg/dL (70-99) Calcium Level 9.2 mg/dL (8.5-10.1) Magnesium Level 2.6 mg/dL (1.8-2.4) Total Bilirubin 0.4 mg/dL (0.2-1.0) Aspartate Amino Transf (AST/SGOT) 16 U/L (15-37) Alanine Aminotransferase (ALT/SGPT) 27 U/L (16-63) Alkaline Phosphatase 65 U/L (46-116) Troponin I Quantitative < 0.017 ng/mL (0.000-0.055) 0.161 ng/mL (0.000-0.055) TQ-[id number]-Type Natriuretic Peptide 90 pg/mL (0-124) Total Protein 8.0 g/dL (6.4-8.2) Albumin 4.2 g/dL (3.4-5.0) Albumin/Globulin Ratio 1.1 (1.0-1.7) Lipase 92 U/L (73-393) Urine Collection Type Unknown Urine Color Yellow Urine Clarity Clear Urine pH 5.0 (<5.0-8.0) Urine Specific [place] 1.015 (1.000-1.030) Urine Protein 100 mg/dL (NEG-TRACE) Urine Glucose (UA) Negative mg/dL (NEG) Urine Ketones (Stick) Negative mg/dL (NEG) Urine Blood Small (NEG) Urine Nitrite Negative (NEG) Urine Bilirubin Negative (NEG) Urine Urobilinogen Dipstick 0.2 mg/dL (0.2 mg/dL) Urine Leukocyte Esterase Negative (NEG) Urine RBC 1-2 /HPF (0-2) Urine WBC 1-4 /HPF (0-4) Urine Amorphous Sediment Present /HPF Urine Bacteria 0 /HPF (0-FEW) Urine Hyaline Casts Few /HPF Urine Mucus Mod /LPF Urine Opiates Screen Neg (NEG) Urine Methadone Screen Neg (NEG) Urine Barbiturates Neg (NEG) Urine Phencyclidine Screen Neg (NEG) Urine Amphetamine/Methamphetamine Neg (NEG) Urine Benzodiazepines Screen Neg (NEG) Urine Cocaine Screen Neg (NEG) Urine Cannabinoids Screen Neg (NEG) Urine Ethyl Alcohol Neg (NEG) Images Images Chest x-ray shows patchy airspace disease in the left base. Assessment/Plan Assessment/Plan 1. Seizure. History of a seizure disorder. Has been seen and evaluated by [facility]. We will continue medications as per their recommendations. 2. Atrial fibrillation. Rate is under better control. History of paroxysmal atrial fibrillation. Will convert to oral medications. Uncertain candidate for long-term anticoagulation with his seizure disorder. We will continue to monitor. We will follow-up in the office and consider up outpatient monitoring as well. 3. Probable pneumonia. On antibiotics. 4. Renal insufficiency. Creatinine of 1.7. We will continue to monitor. 5. Minimally elevated troponin of 0.161. No acute ischemic EKG changes. Normal echocardiogram in September. We will continue to trend patient's troponin. This is most consistent with demand ischemia secondary the patient's rapid ventricular response. Thank you for allowing us to participate in the care of your patient. JENNIFER GARCIA MD Jun 20, 2020 14:47
[2020-06-20] MEDS: lamoTRIgine 25 MG TABLET. PO SCH (20:58)
[2020-06-20] MEDS: METOPROLOL TART IMMED RELEASE 50 MG TABLET. PO SCH (20:59)
[2020-06-20] MEDS: levETIRAcetam 500 MG TABLET PO SCH (20:59)
[2020-06-20] MEDS ORDERED: cefTRIAXone IV Push 1 GM VIAL. IVP SCH (22:00)
[2020-06-21 01:08] LABS: HEMOGLOBIN A1C 5.5 % (4.8-5.6)
[2020-06-21 03:15] VITALS: BP 139/80
[2020-06-21 07:30] VITALS: BP 145/90
[2020-06-21] MEDS: ENOXAPARIN 40 MG/0.4 ML SYRINGE. SQ SCH (07:57)
[2020-06-21] MEDS: lamoTRIgine 25 MG TABLET. PO SCH (07:57)
[2020-06-21] MEDS: METOPROLOL TART IMMED RELEASE 50 MG TABLET. PO SCH (07:58)
[2020-06-21] MEDS: TAMSULOSIN 0.4 MG CAP.ER.24H. PO SCH (07:59)
[2020-06-21] MEDS: levETIRAcetam 500 MG TABLET PO SCH (07:59)
[2020-06-21] MEDS: AZITHROMYCIN 250 MG TABLET. PO SCH (08:34)
--- NOTE | 2020-06-21 10:01 | EKG ---
[facility] [address] [place] [address] Test Date: 2020-06-21 Test Time: 09:58:15 Pat Name: SAMY VALENTE Department: Room: 260 1 Gender: M [employer] T[employer]: [place] : 1965 Requested By: JENNIFER GARCIA Order Number: [id number] Reading MD: Humberto Higgins MD Measurements Intervals [place] Rate: 61 P: 50 [place]: 176 QRS: 82 QRSD: 88 T: 74 QT: 438 QTc: 442 Interpretive Statements SINUS RHYTHM NORMAL ECG RI6.02 No previous ECG available for comparison Electronically Signed On 06-21-2020 12:59:57 CDT by Humberto Higgins MD
--- NOTE | 2020-06-21 11:23 | PDOC ---
[facility] PROGRESS NOTE Date of Service DOS: DATE: 06/21/20 TIME: 11:20 Chief Complaint Chief Complaint Atrial fibrillation with rapid ventricular response Community-acquired pneumonia History of essential hypertension History of seizure disorder Mildly elevated troponin most likely secondary to demand ischemia non-STEMI type II secondary to rapid ventricular response Chronic kidney disease stage III a Hyperglycemia of unknown clinical significance Plan We will transition to Cardizem p.o. Given his risk factors patient probably will benefit from anticoagulation We will follow urinary output Check hemoglobin A1c Trend troponin Further recommendations based on the clinical course We will repeat a PA and lateral chest x-ray Continue Rocephin and Zithromax for community-acquired pneumonia DVT prophylaxis with Lovenox History of Present Illness History of Present Illness Patient is a 54-year-old gentleman with past medical history of seizure disorder and essential hypertension who looks certainly older than the stated age who was in the usual state of health until he was brought by emergency medical services after suffering for a witnessed seizure while he was sitting in a chair. Patient apparently does not remember the incident reports of 1 minute approximately of postictal. Is recorded. Patient was found to have atrial fibrillation with rapid ventricular response upon evaluation in the emergency de partment reason why we were asked to admit the patient. The patient denied any chest pain no palpitations at the time of the event no aura type of symptoms no flashing lights or weird smells were reported prior to the event. He did not have loss of sphincter control. Patient was apparently at [facility] for suicidal ideation which at the moment he does not endorse history of. At the time of my visit the patient denies any headache no generalized malaise no history of cold-like symptoms and he adamantly says that he does not have COVID-19. He denies any exposure to cope with 19 patients denies fever cough sputum production no pleurisy was reported no nausea vomiting or diarrhea no abdominal pain was reported. Patient denies urinary symptoms. Plan of care has been explained detail and all of his concerns were addressed to the best of my abilities 06/21/2020 Patient evaluated bedside. He denies any chest pain or shortness of breath. He denies any palpitations. Discussed with RN, he feels comfortable [facility] and transportation will be provided. Will discharge with handwritten scripts. Greater than 35 minutes was spent managing the discharge of this patient. Vitals/I&O Vitals/I&O: Vital Signs Date Time Temp Pulse Resp B/P (MAP) Pulse Ox O2 Delivery O2 Flow Rate FiO2 06/21/20 07:58 67 145/90 06/21/20 07:30 97.7 18 96 Room Air 97.7 06/20/20 19:29 2.0 I & O 06/20/20 06/20/20 06/21/20 15:00 23:00 07:00 Intake Total 300 ml 300 ml Output Total 500 ml 300 ml Balance -500 ml 0 ml 300 ml Physical Exam General: Alert, No acute distress Heart: Regular rate, Normal S1, Normal S2, Other (Irregularly irregular) Lungs: Clear Abdomen: Normal bowel sounds Extremities: No clubbing, No cyanosis Skin: No rashes, No breakdown Labs Labs: Laboratory Tests Test 06/21/20 04:15 Troponin I Quantitative 0.045 ng/mL (0.000-0.055) Review of Systems Review of Systems: Denies chest pain, denies shortness of breath, denies fever. All other review of systems negative. Assessment and Plan Assessmemt and Plan Problems Medical Problems: (1) Atrial fibrillation with rapid ventricular response Status: Acute (2) Seizure Status: Acute Problems: (1) Seizure (2) Atrial fibrillation with rapid ventricular response Comment Review of Relevant I have reviewed the following items clau (where applicable) has been applied. Medications: Current Medications Medications (Trade) Dose Ordered Sig/Indigo Route PRN Reason Start Time Stop Time Status Last Admin Dose Admin Ceftriaxone Sodium (Rocephin) 1 gm Q24H IVP 06/20/20 22:00 06/20/20 20:59 Metoprolol Tartrate (Lopressor) 50 mg BID PO 06/20/20 21:00 06/21/20 07:58 Tamsulosin HCl (Flomax) 0.4 mg DAILY PO 06/20/20 14:00 06/21/20 07:59 Lamotrigine (LaMICtal) 25 mg BID PO 06/20/20 21:00 06/21/20 07:57 Levetiracetam (Keppra) 500 mg BID PO 06/20/20 21:00 06/21/20 07:59 Justifications for Admission Other Justification GULSHAN HODGSON MD Jun 21, 2020 11:23
--- NOTE | 2020-06-21 11:30 | PDOC3 ---
Discharge Summary Visit Information Date of Admission: Jun 20, 2020 Date of Discharge: Jun 21, 2020 Final Diagnosis Problems Medical Problems: (1) Atrial fibrillation with rapid ventricular response Status: Acute (2) Seizure Status: Acute Brief Hospital Course Allergies Allergies Coded Allergies Type Severity Reaction Last Updated Verified Penicillins Allergy Intermediate Hives 06/19/20 Yes Vital Signs Vital Signs Date Time Temp Pulse Resp B/P (MAP) Pulse Ox O2 Delivery O2 Flow Rate FiO2 06/21/20 07:58 67 145/90 06/21/20 07:30 97.7 18 96 Room Air 97.7 06/20/20 19:29 2.0 Lab Results Laboratory Tests Test 06/19/20 20:32 06/19/20 20:35 06/20/20 02:00 06/21/20 04:15 White Blood Count 8.1 x10^3/uL (4.0-11.0) Red Blood Count 5.24 x10^6/uL (4.30-5.70) Hemoglobin 15.7 g/dL (13.0-17.5) Hematocrit 46.3 % (39.0-53.0) Mean Corpuscular Volume 88 fL (79-100) Mean Corpuscular Hemoglobin 30 pg (25-35) Mean Corpuscular Hemoglobin Concent 34 g/dL (31-37) Red Cell Distribution Width 13.7 % (11.5-14.5) Platelet Count 219 x10^3/uL (140-400) Neutrophils (%) (Auto) 45 % (31-73) Lymphocytes (%) (Auto) 42 % (24-48) Monocytes (%) (Auto) 11 % (0-9) Eosinophils (%) (Auto) 2 % (0-3) Basophils (%) (Auto) 1 % (0-3) Neutrophils # (Auto) 3.7 x10^3/uL (1.8-7.7) Lymphocytes # (Auto) 3.4 x10^3/uL (1.0-4.8) Monocytes # (Auto) 0.9 x10^3/uL (0.0-1.1) Eosinophils # (Auto) 0.1 x10^3/uL (0.0-0.7) Basophils # (Auto) 0.1 x10^3/uL (0.0-0.2) Prothrombin Time 12.7 SEC (11.7-14.0) Prothromb Time International Ratio 1.0 (0.8-1.1) Sodium Level 138 mmol/L (136-145) Potassium Level 3.6 mmol/L (3.5-5.1) Chloride Level 101 mmol/L (98-107) Carbon Dioxide Level 16 mmol/L (21-32) Anion Gap 21 (6-14) Blood Urea Nitrogen 16 mg/dL (8-26) Creatinine 1.7 mg/dL (0.7-1.3) Estimated GFR (Cockcroft-Gault) 42.4 BUN/Creatinine Ratio 9 (6-20) Glucose Level 171 mg/dL (70-99) Calcium Level 9.2 mg/dL (8.5-10.1) Magnesium Level 2.6 mg/dL (1.8-2.4) Total Bilirubin 0.4 mg/dL (0.2-1.0) Aspartate Amino Transf (AST/SGOT) 16 U/L (15-37) Alanine Aminotransferase (ALT/SGPT) 27 U/L (16-63) Alkaline Phosphatase 65 U/L (46-116) Troponin I Quantitative < 0.017 ng/mL (0.000-0.055) 0.161 ng/mL (0.000-0.055) 0.045 ng/mL (0.000-0.055) GF-Luv-Y-Type Natriuretic Peptide 90 pg/mL (0-124) Total Protein 8.0 g/dL (6.4-8.2) Albumin 4.2 g/dL (3.4-5.0) Albumin/Globulin Ratio 1.1 (1.0-1.7) Lipase 92 U/L (73-393) Urine Collection Type Unknown Urine Color Yellow Urine Clarity Clear Urine pH 5.0 (<5.0-8.0) Urine Specific [place] 1.015 (1.000-1.030) Urine Protein 100 mg/dL (NEG-TRACE) Urine Glucose (UA) Negative mg/dL (NEG) Urine Ketones (Stick) Negative mg/dL (NEG) Urine Blood Small (NEG) Urine Nitrite Negative (NEG) Urine Bilirubin Negative (NEG) Urine Urobilinogen Dipstick 0.2 mg/dL (0.2 mg/dL) Urine Leukocyte Esterase Negative (NEG) Urine RBC 1-2 /HPF (0-2) Urine WBC 1-4 /HPF (0-4) Urine Amorphous Sediment Present /HPF Urine Bacteria 0 /HPF (0-FEW) Urine Hyaline Casts Few /HPF Urine Mucus Mod /LPF Urine Opiates Screen Neg (NEG) Urine Methadone Screen Neg (NEG) Urine Barbiturates Neg (NEG) Urine Phencyclidine Screen Neg (NEG) Urine Amphetamine/Methamphetamine Neg (NEG) Urine Benzodiazepines Screen Neg (NEG) Urine Cocaine Screen Neg (NEG) Urine Cannabinoids Screen Neg (NEG) Urine Ethyl Alcohol Neg (NEG) Hemoglobin A1c 5.5 % (4.8-5.6) Laboratory Tests Test 06/21/20 04:15 Troponin I Quantitative 0.045 ng/mL (0.000-0.055) Brief Hospital Course Mr. Deal is a 54 old male who presented with community-acquired pneumonia, A. fib with RVR, and seizure. He had a witnessed seizure-like episode on the day of admission, and chest x-ray on admission shows left lung base airspace disease. He was treated with appropriate antibiotics and diltiazem infusion. Consultations were placed to cardiology and neurology. His diltiazem was converted to oral. Given his history of seizures he is an uncertain candidate for anticoagulation. He will follow-up with cardiology to reevaluate. Will discharge on oral antibiotics, anticonvulsants, and rate control medication. Discharge Information Condition at Discharge: Stable Disposition/Orders: D/C to Home Scheduled Lamotrigine (Lamotrigine) 50 Mg Tab.er.24, 0.5 TAB PO BID for seizures for 30 Days, #30 Ref 0 (Reported) Entered as Reported by: GINA CASTELLANOS on 10/21/19 1357 Last Action: Converted on 06/20/20 1324 by Nathaniel Toth Levetiracetam (Levetiracetam) 1,000 Mg Tablet, 1 TAB PO BID for seizures for 30 Days, #60 Ref 0 (Reported) Entered as Reported by: GINA CASTELLANOS on 06/20/20 1053 Last Action: Converted on 06/20/20 1324 by Nathaniel Toth Metoprolol Tartrate (Metoprolol Tartrate) 50 Mg Tablet, 1 TAB PO BID for HR for 30 Days, #60 Ref 0 (Reported) Entered as Reported by: GINA CASTELLANOS on 10/21/19 1401 Last Action: Continued on 06/20/20 1324 by Nathaniel Toth Tamsulosin Hcl (Flomax) 0.4 Mg Cap.er.24h, 1 CAP PO DAILY for prostate, #30 Ref 11 (Reported) Entered as Reported by: GINA CASTELLANOS on 06/20/20 1053 Last Action: Continued on 06/20/20 1324 by Nathaniel Toth Discontinued Medications Levetiracetam (Keppra) 750 Mg Tablet, 2 TAB PO BID for seizure for 30 Days, #120 Ref 0 (Reported) Discontinued Reason: Prescription changed Entered as Reported by: SUMAYA SMALL on 10/20/19 1001 Justicifation of Admission Dx: Justifications for Admission: Justification of Admission Dx: Yes (afib rvr) GULSHAN HODGSON MD Jun 21, 2020 11:30
[2020-06-21 12:06] VITALS: BP 115/78
--- NOTE | 2020-06-21 12:49 | PDOC ---
SELWYN CH [employer]LE[employer] TE[employer]ER 06/21/20 1249: CARDIO Progress Notes Date and Time Date of Service 06/21/20 Time of Evaluation 1200 Subjective Subjective: No Chest Pain, No shortness of breath, No Palpitations Vitals Vitals Vital Signs Date Time Temp Pulse Resp B/P (MAP) Pulse Ox O2 Delivery O2 Flow Rate FiO2 06/21/20 12:06 98.4 66 18 115/78 (90) 96 Room Air 98.4 06/20/20 19:29 2.0 Weight Weight [ ] Input and Output Intake and Output Intake and Output 06/21/20 07:00 Intake Total 600 ml Output Total 800 ml Balance -200 ml Intake Oral 600 ml Output Urine Total 800 ml # Voids 3 Laboratory Labs Laboratory Tests Test 06/21/20 04:15 Troponin I Quantitative 0.045 ng/mL (0.000-0.055) Physical Exam HEENT: Neck Supple W Full Motion Chest: Symmetric LUNGS: Clear to Auscultation Heart: RRR Abdomen: Soft N/T Extremities: No Edema Neurology: alert, oriented, follow commands Assessment Assessment 1. Seizure disorder 2. PAFIB; with RVR upon arrival following seizure episode. Converted back to SR with Cardizem gtt. Oral Cardizem added in addition to metoprolol. 3. Mild troponin elevation; peak 0.161. Most probably type II, demand ischemia secondary to above. Echo earlier this year with preserved LV systolic function. Not interested in stress test. 4. Hypertension; controlled 5. BUNNY on CKD 6. Probable PNA; antibiotic therapy 7. Homelessness; staying at [facility] Recommendations Continue metoprolol for rate control Patient refusing addition of Cardizem upon discharge; reports he plan to throw away his new prescriptions Discussed outpatient event monitor to note AFIB burden; patient also declines this. Encouraged follow up with [facility] unit nurse ASA therapy. No OAC due to recurrent seizures. risk for traumatic injury/hemorrhage Okay to discharge from a CV standpoint. Justicifation of Admission Dx: Justifications for Admission: Justification of Admission Dx: Yes (afib rvr) JENNIFER GARCIA MD 06/21/20 1610: CARDIO Progress Notes Assessment Assessment Patient seen and examined Seizure disorder PAFIB; with RVR upon arrival following seizure episode. Converted back to SR with Cardizem gtt. Oral Cardizem added in addition to metoprolol. Would not start on long-term anticoagulation at this time secondary to recurrent seizures. Mild troponin elevation; peak 0.161. Demand ischemia secondary to above. Echo earlier this year with preserved LV systolic function. Not interested in stress test. Hypertension; controlled SELWYN CH APRN Jun 21, 2020 12:49 JENNIFER GARCIA MD Jun 21, 2020 16:10
--- NOTE | 2020-06-21 12:49 | NUR ---
SS following up with discharge planning. SS reviewed pt chart and discussed with pt RN. Pt is from [facility], , [address] [place] [address]. Pt is currently on room air and per RN medically stable. Discharge order on the chart for home with self care. Pt will discharge today and return to [facility] via [facility] transport, [id number], at 1400. Pt's RN notified.
--- NOTE | 2020-06-21 14:49 | NUR ---
Discharge Note: SAMY VALENTE Discharge instructions and discharge home medications reviewed with Patient and a copy given. All questions have been answered and understanding verbalized. The following instructions and handouts were given: seizure Discontinued lines and drains: Peripheral IV intact. Patient discharged to Home or Self Care with Self via Wheelchair
--- NOTE | 2020-06-21 15:08 | PDOC ---
PROGRESS NOTES Date of Service DATE: 06/21/20 TIME: 15:06 Assessment Problems Medical Problems: (1) Atrial fibrillation with rapid ventricular response Status: Acute (2) Seizure Status: Acute Epilepsy, breakthrough seizure, also has atrial fibrillation with rapid ventricular response, hard to know which way the cause and effect arrow goes between the 2. He is fine now Plan Current anticonvulsants, he reports a rather low dose of lamotrigine, I told him to discuss with [facility] No need to repeat further neurological studies Okay for discharge Subjective No complaints, wants to go back to [facility] Objective Vital Signs Date Time Temp Pulse Resp B/P (MAP) Pulse Ox O2 Delivery O2 Flow Rate FiO2 06/21/20 12:06 98.4 66 18 115/78 (90) 96 Room Air 98.4 06/20/20 19:29 2.0 Intake and Output 06/21/20 07:00 Intake Total 600 ml Output Total 800 ml Balance -200 ml Intake Oral 600 ml Output Urine Total 800 ml # Voids 3 PHYSICAL EXAM Alert. Oriented to time, place and person. PERRL. EOMI. CN: no focal findings. Muscle tone: normal. Muscle strength: 5/5 DTR: 2+ Plantar reflex: Flexor Gait: not examined in bed. Sensory exam: no abnormal findings. No cerebellar signs elicited. Review of Relevant I have reviewed the following items clau (where applicable) has been applied. Labs Laboratory Tests Test 06/19/20 20:32 06/19/20 20:35 06/20/20 02:00 06/21/20 04:15 White Blood Count 8.1 x10^3/uL (4.0-11.0) Red Blood Count 5.24 x10^6/uL (4.30-5.70) Hemoglobin 15.7 g/dL (13.0-17.5) Hematocrit 46.3 % (39.0-53.0) Mean Corpuscular Volume 88 fL (79-100) Mean Corpuscular Hemoglobin 30 pg (25-35) Mean Corpuscular Hemoglobin Concent 34 g/dL (31-37) Red Cell Distribution Width 13.7 % (11.5-14.5) Platelet Count 219 x10^3/uL (140-400) Neutrophils (%) (Auto) 45 % (31-73) Lymphocytes (%) (Auto) 42 % (24-48) Monocytes (%) (Auto) 11 % (0-9) Eosinophils (%) (Auto) 2 % (0-3) Basophils (%) (Auto) 1 % (0-3) Neutrophils # (Auto) 3.7 x10^3/uL (1.8-7.7) Lymphocytes # (Auto) 3.4 x10^3/uL (1.0-4.8) Monocytes # (Auto) 0.9 x10^3/uL (0.0-1.1) Eosinophils # (Auto) 0.1 x10^3/uL (0.0-0.7) Basophils # (Auto) 0.1 x10^3/uL (0.0-0.2) Prothrombin Time 12.7 SEC (11.7-14.0) Prothromb Time International Ratio 1.0 (0.8-1.1) Sodium Level 138 mmol/L (136-145) Potassium Level 3.6 mmol/L (3.5-5.1) Chloride Level 101 mmol/L (98-107) Carbon Dioxide Level 16 mmol/L (21-32) Anion Gap 21 (6-14) Blood Urea Nitrogen 16 mg/dL (8-26) Creatinine 1.7 mg/dL (0.7-1.3) Estimated GFR (Cockcroft-Gault) 42.4 BUN/Creatinine Ratio 9 (6-20) Glucose Level 171 mg/dL (70-99) Calcium Level 9.2 mg/dL (8.5-10.1) Magnesium Level 2.6 mg/dL (1.8-2.4) Total Bilirubin 0.4 mg/dL (0.2-1.0) Aspartate Amino Transf (AST/SGOT) 16 U/L (15-37) Alanine Aminotransferase (ALT/SGPT) 27 U/L (16-63) Alkaline Phosphatase 65 U/L (46-116) Troponin I Quantitative < 0.017 ng/mL (0.000-0.055) 0.161 ng/mL (0.000-0.055) 0.045 ng/mL (0.000-0.055) WR-Qsb-S-Type Natriuretic Peptide 90 pg/mL (0-124) Total Protein 8.0 g/dL (6.4-8.2) Albumin 4.2 g/dL (3.4-5.0) Albumin/Globulin Ratio 1.1 (1.0-1.7) Lipase 92 U/L (73-393) Urine Collection Type Unknown Urine Color Yellow Urine Clarity Clear Urine pH 5.0 (<5.0-8.0) Urine Specific [place] 1.015 (1.000-1.030) Urine Protein 100 mg/dL (NEG-TRACE) Urine Glucose (UA) Negative mg/dL (NEG) Urine Ketones (Stick) Negative mg/dL (NEG) Urine Blood Small (NEG) Urine Nitrite Negative (NEG) Urine Bilirubin Negative (NEG) Urine Urobilinogen Dipstick 0.2 mg/dL (0.2 mg/dL) Urine Leukocyte Esterase Negative (NEG) Urine RBC 1-2 /HPF (0-2) Urine WBC 1-4 /HPF (0-4) Urine Amorphous Sediment Present /HPF Urine Bacteria 0 /HPF (0-FEW) Urine Hyaline Casts Few /HPF Urine Mucus Mod /LPF Urine Opiates Screen Neg (NEG) Urine Methadone Screen Neg (NEG) Urine Barbiturates Neg (NEG) Urine Phencyclidine Screen Neg (NEG) Urine Amphetamine/Methamphetamine Neg (NEG) Urine Benzodiazepines Screen Neg (NEG) Urine Cocaine Screen Neg (NEG) Urine Cannabinoids Screen Neg (NEG) Urine Ethyl Alcohol Neg (NEG) Hemoglobin A1c 5.5 % (4.8-5.6) Laboratory Tests Test 06/21/20 04:15 Troponin I Quantitative 0.045 ng/mL (0.000-0.055) Medications Current Medications Diltiazem HCl (Cardizem Iv Push) 25 mg 1X ONCE IVP Last administered on 06/19/20at 20:51; Start 06/19/20 at 20:45; Stop 06/19/20 at 20:46; Status DC Diltiazem HCl 125 mg/Sodium Chloride 125 ml @ 5 mls/hr 1X ONCE IV Last administered on 06/19/20at 20:52; Start 06/19/20 at 20:45; Stop 06/20/20 at 17:56; Status DC Aspirin (Jeff Aspirin) 325 mg 1X ONCE PO Last administered on 06/19/20at 20:50; Start 06/19/20 at 21:00; Stop 06/19/20 at 21:01; Status DC Azithromycin 250 ml @ 250 mls/hr 1X ONCE IV Last administered on 06/19/20at 22 :00; Start 06/19/20 at 22:00; Stop 06/19/20 at 22:59; Status DC Ceftriaxone Sodium (Rocephin) 1 gm 1X ONCE IVP Last administered on 06/19/20at 22:02; Start 06/19/20 at 22:00; Stop 06/19/20 at 22:01; Status DC Lorazepam (Ativan Inj) 2 mg 1X ONCE IVP Last administered on 06/19/20at 22:15; Start 06/19/20 at 22:15; Stop 06/19/20 at 22:37; Status DC Levetiracetam 1000 mg/Dextrose 110 ml @ 440 mls/hr 1X ONCE IV Last administered on 06/19/20at 23:33; Start 06/19/20 at 23:00; Stop 06/19/20 at 23:14; Status DC Lorazepam (Ativan Inj) 1 mg 1X ONCE IVP ; Start 06/19/20 at 23:00; Stop 06/19/20 at 23:01; Status DC Lorazepam (Ativan Inj) 1 mg PRN Q4HRS PRN IVP SEIZURE; Start 06/19/20 at 22:45; Stop 06/21/20 at 14:51; Status DC Ondansetron HCl (Zofran) 4 mg PRN Q4HRS PRN IV NAUSEA/VOMITING; Start 06/20/20 at 08:30; Stop 06/21/20 at 14:51; Status DC Zolpidem Tartrate (Ambien) 5 mg PRN QHS PRN PO INSOMNIA; Start 06/20/20 at 08:30; Stop 06/21/20 at 14:51; Status DC Acetaminophen (Tylenol) 650 mg PRN Q4HRS PRN PO TEMP OVER 100.4F OR MILD PAIN; Start 06/20/20 at 08:30; Stop 06/21/20 at 14:51; Status DC Acetaminophen (Tylenol Supp) 650 mg PRN Q4HRS PRN SD TEMP OVER 100.4F OR MILD PAIN; Start 06/20/20 at 08:30; Stop 06/21/20 at 14:51; Status DC Docusate Sodium (Colace) 100 mg PRN BID PRN PO HARD STOOLS; Start 06/20/20 at 08:30; Stop 06/21/20 at 14:51; Status DC Albuterol Sulfate (Ventolin Neb Soln) 2.5 mg PRN Q4HRS PRN NEB SHORTNESS OF BREATH; Start 06/20/20 at 08:30; Stop 06/21/20 at 14:51; Status DC Guaifenesin (Robitussin) 200 mg PRN Q4HRS PRN PO COUGH; Start 06/20/20 at 08:30; Stop 06/21/20 at 14:51; Status DC Lorazepam (Ativan) 0.5 mg PRN Q4HRS PRN PO ANXIETY / AGITATION; Start 06/20/20 at 08:30; Stop 06/21/20 at 14:51; Status DC Enoxaparin Sodium (Lovenox 40mg Syringe) 40 mg Q24H SQ Last administered on 06/21/20at 07:57; Start 06/20/20 at 09:00; Stop 06/21/20 at 14:51; Status DC Ceftriaxone Sodium (Rocephin) 1 gm Q24H IVP Last administered on 06/20/20at 20:59; Start 06/20/20 at 22:00; Stop 06/21/20 at 14:51; Status DC Azithromycin (Zithromax) 500 mg DAILY PO Last administered on 06/21/20at 08:34; Start 06/20/20 at 09:00; Stop 06/21/20 at 09:01; Status DC Diltiazem HCl (Cardizem 24hr Cd) 240 mg DAILY PO Last administered on 06/21/20at 07:58; Start 06/20/20 at 11:00; Stop 06/21/20 at 14:51; Status DC Metoprolol Tartrate (Lopressor) 50 mg BID PO Last administered on 06/21/20at 07:58; Start 06/20/20 at 21:00; Stop 06/21/20 at 14:51; Status DC Tamsulosin HCl (Flomax) 0.4 mg DAILY PO Last administered on 06/21/20at 07:59; Start 06/20/20 at 14:00; Stop 06/21/20 at 14:51; Status DC Lamotrigine (LaMICtal) 25 mg BID PO Last administered on 06/21/20at 07:57; Start 06/20/20 at 21:00; Stop 06/21/20 at 14:51; Status DC Levetiracetam (Keppra) 500 mg BID PO Last administered on 06/21/20at 07:59; Start 06/20/20 at 21:00; Stop 06/21/20 at 14:51; Status DC Lactobacillus Rhamnosus (Culturelle) 1 cap BID PO ; Start 06/21/20 at 21:00; Stop 06/21/20 at 14:51; Status DC Active Scripts Active Reported Flomax (Tamsulosin Hcl) 0.4 Mg Cap.er.24h 1 Cap PO DAILY Levetiracetam 1,000 Mg Tablet 1 Tab PO BID 30 Days Metoprolol Tartrate 50 Mg Tablet 1 Tab PO BID 30 Days Lamotrigine 50 Mg Tab.er.24 0.5 Tab PO BID 30 Days Vitals/I & O Vital Sign - Last 24 Hours 06/20/20 06/20/20 06/20/20 06/20/20 19:20 19:29 20:59 23:05 Temp 98.4 98.1 98.4 98.1 Pulse 76 76 60 Resp 18 18 B/P (MAP) 134/80 (98) 134/80 145/90 (108) Pulse Ox 95 97 O2 Delivery Room Air Nasal Cannula Room Air O2 Flow Rate 2.0 06/21/20 06/21/20 06/21/20 06/21/20 03:15 07:30 07:58 07:58 Temp 97.8 97.7 97.8 97.7 Pulse 70 67 67 67 Resp 18 18 B/P (MAP) 139/80 (99) 145/90 (108) 145/90 145/90 Pulse Ox 97 96 O2 Delivery Room Air Room Air 06/21/20 12:06 Temp 98.4 98.4 Pulse 66 Resp 18 B/P (MAP) 115/78 (90) Pulse Ox 96 O2 Delivery Room Air Intake and Output 06/20/20 06/20/20 06/21/20 15:00 23:00 07:00 Intake Total 300 ml 300 ml Output Total 500 ml 300 ml Balance -500 ml 0 ml 300 ml Justicifation of Admission Dx: Justifications for Admission: Justification of Admission Dx: Yes (afib rvr) SAMY BAPTISTE MD Jun 21, 2020 15:07
[2020-06-21] MEDS ORDERED: LACTOBACILLUS RHAMNOSUS GG 1 CAPSULE. PO SCH (21:00)
== END 2020-06-21 14:51 | disposition home or self-care (01) | DRG 100 ==
LOC: ER 20:25 → 2 SOUTH 21:47 → OBSVTOIN 06-20 21:11
PROVIDERS: ADMIT Family Medicine; ATTEND Family Medicine
DX: G40.909 Epilepsy, unspecified, not intractable, without status epilepticus (principal); J18.9 Pneumonia, unspecified organism; N17.9 Acute kidney failure, unspecified; R45.851 Suicidal ideations; I48.0 Paroxysmal atrial fibrillation; I12.9 Hypertensive chronic kidney disease with stage 1 through stage 4 chronic kidney disease, or unspecified chronic kidney disease; N18.3 Chronic kidney disease, stage 3 (moderate); Z59.0 Homelessness; Z79.899 Other long term (current) drug therapy; M54.5 Low back pain; R73.9 Hyperglycemia, unspecified
CPT/HCPCS: 36415; 71045; 71046; 80053; 80175; 80307; 81001; 83036; 83690; 83735; 83880; 84484; 85025; 85610; 93005; 96365; 96366; 96368; 96375; 99285; G0378; G0379; J0456; J0696; J1650; J1953; J2060; J3490; J7060